=== PATIENT | female | born 1990 | race African-American/Black ===

== ENCOUNTER 2024-06-28 09:19 | Day surgery (SDC) | payer OTHER ==
[~2024-06-28] VITALS: Ht 167.6 cm; Wt 63.5 kg
[~2024-06-28 09:19] MED LIST: D350 MCG PO; HYDROCHLOROQUINE PO; IRON (FERROUS S50 MG PO
[2024-06-28] MEDS ORDERED: FAMOTIDINE 10MG/ML 2ML SDV IV ONE (09:38)
[2024-06-28] MEDS ORDERED: LACTATED RINGER'S 1,000 ML IV ONE (09:38)
[2024-06-28 11:35] VITALS: BP 107/76
[2024-06-28] MEDS ORDERED: PROPOFOL 200 MG/20 ML VIAL IV ONE (16:31)
[2024-06-28] MEDS ORDERED: LIDOCAINE HCL 2% 2ML SDV IV ONE (16:31)
[2024-06-28] MEDS ORDERED: GLYCOPYRROLATE 0.2 MG/ML IV ONE (16:31)
== END 2024-06-28 12:31 | disposition home or self-care (01) ==
LOC: ENDO 09:19 → ORM 13:10 → ENDO 13:30 → ORM 13:45
PROVIDERS: ATTEND Internal Medicine Gastroenterology
DX: K51.00 Ulcerative (chronic) pancolitis without complications (principal); K63.5 Polyp of colon; K64.8 Other hemorrhoids; K29.70 Gastritis, unspecified, without bleeding; K31.89 Other diseases of stomach and duodenum; K20.80 Other esophagitis without bleeding; F41.9 Anxiety disorder, unspecified; D50.9 Iron deficiency anemia, unspecified